=== PATIENT | female | born 1950 | race Caucasian/White ===

== ENCOUNTER 2018-07-04 18:56 | Inpatient (IN) | payer MEDICARE ==
[~2018-07-04] VITALS: Ht 157.4 cm; Wt 59.5 kg
--- NOTE | ~2018-07-04 | WRIGHTHP ---
[place], [place] PATIENT HISTORY AND PHYSICAL EXAM NAME: [facility]UL [facility]ER [id number] UNIT #: [id number] ROOM: 314 DOCTOR: BRENDA TOMLINSON MD BIRTHDATE: [birth year] DOS: 07/05/2018 INITIAL PSYCHIATRIC EVALUATION CHIEF COMPLAINT: "Oh, I have a long history of manic depression. I am feeling a little bit of everything." HISTORY OF PRESENT ILLNESS: This is a 68-year-old white female who was interviewed as she was completing her breakfast and looking out the window. She stopped and engaged readily in conversation. She reports that she is here from [facility] where she had presented with increased depression and mood lability. The patient reports that this has been ongoing now for several weeks and that she has felt totally out of control. She has not been sleeping well, not been eating well, not been attending to her ADLs. She reports several psychiatric admissions in her lifetime, but states that her current medication regimen is not been effective at controlling her mood lability. She is admitted now to re-stabilize on medication, to engage in individual and malave milieu activity, and to return to the least restrictive environment when psychiatrically stable. PAST MEDICAL HISTORY: Rather lengthy and includes chronic kidney disease stage 3, chronic pain, allergic rhinitis, fibromyalgia, generalized anxiety disorder, GERD, hyperlipidemia, hypertension, hypothyroidism, leukopenia, migraine headaches, multiple sclerosis, normocytic anemia, peripheral edema, seizure disorder, and vitamin B12 deficiency. SOCIAL HISTORY: She is a former smoker, a social alcohol user, but not an illicit drug user. ALLERGIES: LISTED TO PHENOTHIAZINES, DEPAKOTE, VIMPAT, LAMICTAL, ____. STRENGTHS: Good verbal skills, ambulatory. WEAKNESSES: Long-term psychiatric illness and poor coping skills. MENTAL STATUS: She is alert and oriented to person, place, and time. Mood does seem to be rather labile and she mixes some depressive symptoms with some hypomania. Although she did not endorse this to me, she has told nurses that she does have auditory hallucinations and at times hears and sees things that are not there. This is ongoing. Memory for the most part is intact. DIAGNOSIS: Bipolar type 1, mixed, with psychotic features. PLAN: I have already discontinued her Cymbalta and Serax and attempted to simplify her rather complicated medication regimen. I have started her on Latuda 40 mg at bedtime as a mood stabilizer, and I will now start her on Remeron 15 mg at bedtime to aid sleep and combat depression. We will engage her in individual and malave milieu activity, returning then to the least restrictive environment when psychiatrically stable. [place], [place] PATIENT HISTORY AND PHYSICAL EXAM NAME: JEAN-PAUL FISHER UNIT #: [id number] ROOM: [facility] DOCTOR: BRNEDA TOMLINSON MD BIRTHDATE: [birth year] BRENDA TOMLINSON MD CM:HISPHYS:PATIENT HISTORY AND PHYSICAL EXAMINATION 5 8 BRENDA TOMLINSON MD 07/05/18906 interface
--- NOTE | ~2018-07-04 | PR ---
[place], [place] PROGRESS NOTE NAME[id number] UNIT #: [id number] ROOM: 314 DOCTOR: BRENDA LOBATO MD BIRTHDATE: [birth year] DOS: 07/10/2018 CHIEF COMPLAINT: "I didn't sleep too well again Dr. Lobato." SUMMARY OF THE VISIT: The patient was interviewed as she was finishing her breakfast. She reported to me that she awoke this morning at 3:00 a.m. and lay in bed until 4 before she notified the staff member. She did report that she is not feeling at all somnolent, lightheaded or dizzy and feels that she can tolerate more of the medication stating that she has always been on sleeping pills throughout her life and has developed quite a tolerance. She did not appear somnolent or sedate and was not slurring her words and was very clear in her presentation to me. MENTAL STATUS: She is alert and oriented. Mood does still seem to be depressed. Affect is somewhat blunted and constricted with anxious overtones. There is no nessa, hypomania or psychotic symptoms. Memory for the most part is intact. PLAN: I will change her nighttime dose of trazodone to 300 mg at bedtime. While renewing the p.r.n. Ativan should she require intervention, engage in individual and malave milieu activity, return to the least restrictive environment when psychiatrically stable. BRENDA LOBATO MD CM:PNTRANS [id number] BRENDA LOBATO MD 07/10/18 0845 interface
--- NOTE | ~2018-07-04 | PR ---
[place], [place] PROGRESS NOTE NAME: [id number] UNIT #: [id number] ROOM: 314 DOCTOR: BRENDA TOMLINSON MD BIRTHDATE: [birth year] DOS: 07/08/2018 INTERVAL NOTE CHIEF COMPLAINT: "Oh doctor, my anxiety or my moods, I do not know, they are all bad." SUMMARY OF THE VISIT: The patient was interviewed in the dining area where she was very conversant. She reported to me that her anxiety is out of control. She at times links the anxiety with her nessa and her moods and states that overall she is still not feeling well. She is also overwhelmed with the fact that her is requiring surgery again that is cardiac in nature and it has been a repetitive surgery, but a serious one. She is very worried that about his health and how she will be able to deal with the stressors that are confronting her. She verbalizes an understanding of the medications and when I did tell her that I would adjust her medicines and add some Zanaflex throughout the day for her anxiety, she did relay that she was taking some of her Zanaflex during the day well at home. She convincingly denies medication side effects at the present time. MENTAL STATUS: She is alert and oriented to person, place and time. Mood does still seem to be depressed with anxious overtones. She endorses nessa, but I do not necessarily see her as hypomanic or manic at this time. There were no auditory or visual hallucinations, no delusions, no paranoia. Short term, intermediate and long-term memory for the most part are intact. PLAN: I will increase her Vistaril from 50 mg 3 times a day to 50 mg 4 times a day and add Zanaflex 4 mg 3 times a day while maintaining her nighttime dose. I will increase the Vraylar from 3 mg at bedtime to 4.5 mg at bedtime. We are targeting 6 mg at bedtime dose. Engage her in individual and malave milieu activity, returning then to the least restrictive environment when psychiatrically stable. BRENDA TOMLINSON MD CM:PNTRANS 4 0 BRENDA TOMLINSON MD 07/08/18 0940 interface
--- NOTE | ~2018-07-04 | PR ---
[place], [place] PROGRESS NOTE NAME: [id number] UNIT #: [id number] ROOM: 314 DOCTOR: BRENDA TOMLINSON MD BIRTHDATE: [birth year] DOS: 07/09/2018 CHIEF COMPLAINT: "Doctor I did not sleep at all last night." SUMMARY OF THE VISIT: The patient was interviewed in her room. She had just come from taking a shower after having breakfast. She reported to me that she did not sleep a wink last night, although nurses report that she slept soundly through the night. She, however, states that she could not shut the wheels off and that she was thinking about things nonstop. She is very worried about her 's health and his impending surgery and states this is one of the major issues that is bothering her at the present time. On a positive note the increase in the Vistaril and the addition of the Zanaflex throughout the day did impact positively on her anxiety. She did notice some mild somnolence, but states that this is a workable side effect and she is willing to see if it will pass. She notes no other side effects from the medications themselves. MENTAL STATUS: She is alert and oriented. Mood does seem to be still depressed with anxious overtones. There is no hypomania, nessa or psychosis. Memory for the most part is intact. PLAN: I will now maximize out the Vraylar to 6 mg at bedtime. I will discontinue Remeron and utilize trazodone as both an antidepressant and a sleep aid, ordering a 150 mg at bedtime straight and another 150 mg p.r.n., should she need it. Engage in individual and malave milieu activity, returning then to the least restrictive environment when psychiatrically stable. BRENDA TOMLINSON MD CM:PNTRANS [id number] BRENDA TOMLINSON MD 07/09/18 1029 interface
--- NOTE | ~2018-07-04 | PR ---
[place], [place] PROGRESS NOTE NAME: [facility]UL [facility]ER [facility] [id number] UNIT #: [id number] ROOM: 314 DOCTOR: BRENDA TOMLINSON MD BIRTHDATE: [birth year] DOS: 07/06/2018 CHIEF COMPLAINT: "Despite what they said doctor, I did not sleep well at all. I was up at 2, 4, 6 and 8." SUMMARY OF THE VISIT: The patient was interviewed in the dining area where she was sitting, drinking a cup of tea. She engaged readily in conversation and reports that Latuda has never worked for her in the past. She did request that I write her back her oxazepam, but I did redirect her stating that she came in on this and obviously it was working so well. She had to be hospitalized and that this would be the time to try something new to see if it would work better. She nodded her head in approval and was willing to consider trying something different. MENTAL STATUS: She remains alert and oriented. Mood is mixed between some hypomanic and depressive symptoms and she is somewhat irritable, but redirectable. There are no auditory or visual hallucinations, delusions or paranoia. Memory is intact. PLAN: I will discontinue Latuda due to previous history of ineffectiveness and start her on Vraylar 1.5 mg at bedtime as a new mood stabilizer. I will add Vistaril 50 mg t.i.d. straight as an antianxiety agent that is not addicting. I did reiterate to her that she does have p.r.n. Ativan available to which she was very happy for. I will let nursing know that they may use this, but cautiously as she does not abuse it. Engage in individual and malave milieu activity, returning to the least restrictive environment when psychiatrically stable. BRENDA TOMLINSON MD CM:PNTRANS 0 3 BRENDA TOMLINSON MD 07/06/18911 interface
[2018-07-04] MEDS ORDERED: ASPIRIN CHEWABL81 MG PO (21:35)
[2018-07-04] MEDS ORDERED: PANTOPRAZOLE SO40 MG PO (21:36)
[2018-07-04] MEDS ORDERED: ZANAFLEX CAPSULE4 MG PO (21:38)
[2018-07-04] MEDS ORDERED: TRIAMTERENE-HC1 EACH PO (21:41)
[2018-07-04] MEDS ORDERED: LEVOXYL112 MCG PO (21:42)
[2018-07-04] MEDS ORDERED: KEPPRA500 MG PO (21:43)
[2018-07-04] MEDS ORDERED: TOPAMAX200 MG PO (21:44)
[2018-07-04] MEDS ORDERED: LASIX40 MG PO (21:47)
[2018-07-04] MEDS ORDERED: PROPRANOLOL HCL20 M1 PO (21:50)
[2018-07-04] MEDS ORDERED: POTASSIUM CHLO20 ME3 PO (21:53)
[2018-07-04] MEDS ORDERED: RANITIDINE HCL150 M1 PO (21:56)
[2018-07-04] MEDS ORDERED: CETIRIZINE10 MG PO (21:58)
[2018-07-04] MEDS ORDERED: CLARITIN10 MG PO (21:59)
[2018-07-04] MEDS ORDERED: SIMVASTATIN5 MG PO (21:59)
[2018-07-04] MEDS ORDERED: VICODIN 5-3001 EACH PO ×2 (22:00→22:01)
[2018-07-04] MEDS ORDERED: B121000 MCG/1 IM (22:02)
[2018-07-04] MEDS ORDERED: CYMBALTA60 MG PO (22:03)
[2018-07-04] MEDS ORDERED: IMITREX4 MG/0.5 M SQ (22:07)
[2018-07-04] MEDS ORDERED: NITROGLYCERIN0.4 MG SL (22:10)
[2018-07-04] MEDS ORDERED: PHENERGAN12.5 M2 R (22:11)
[2018-07-04] MEDS ORDERED: OXAZEPAM15 MG PO (22:13)
[2018-07-04] MEDS ORDERED: PROAIR HFA8.5 GM INH (22:17)
[2018-07-04] MEDS ORDERED: SODIUM CHLORI1000 MG PO (22:29)
[2018-07-05 01:00] VITALS: BP 147/71
[2018-07-05 01:42] VITALS: BP 147/71
[2018-07-05 06:54] LABS: BASO % 0.7 % (0.0-1.0); HEMATOCRIT 26.2 % (37.0-47.0); HEMOGLOBIN 8.6 g/dl (12.0-16.0); LYMPH # 0.8 10*3/uL (1.3-4.4); LYMPH % 28.2 % (27.0-41.0); MEAN CELL VOLUME 99.6 fl (81.0-99.0); MEAN CORPUSCULAR HGB 32.7 pg (27.0-31.0); MEAN CORPUSCULAR HGB CONC 32.8 g/dl (33.0-37.0); MEAN PLATELET VOLUME 10.5 fl (9.6-12.3); MONO # 0.5 10*3/uL (0.1-1.0); MONO % 16.2 % (3.0-9.0); NEUT # 1.6 10*3/uL (2.3-7.9); NEUT % 54.9 % (47.0-73.0); PLATELET COUNT AUTOMATED 185 10*3/uL (130-400); RED BLOOD COUNT 2.63 10*6/uL (4.10-5.10); WHITE BLOOD COUNT 2.9 10*3/uL (4.8-10.8)
[2018-07-05 07:22] VITALS: BP 136/75
[2018-07-05 07:26] LABS: ALBUMIN 2.4 gm/dl (3.1-4.5); ALKALINE PHOSPHATASE 92 U/L (45-117); BUN 17 mg/dl (7-24); CHLORIDE 107 mmol/L (98-107); CHOLESTEROL 143 mg/dL (<200); CREATININE 1.09 mg/dL (0.55-1.02); HDL CHOLESTEROL 51 mg/dl (40-60); LDL CHOLESTEROL 80 mg/dL (9-159); POTASSIUM 3.8 mmol/L (3.5-5.1); SGOT/AST 20 IU/L (3-35); SGPT/ALT 18 U/L (12-78); SODIUM 137 mmol/L (136-145); TOTAL PROTEIN 7.2 gm/dL (6.4-8.2); TRIGLYCERIDES 61 mg/dl (<150); VLDL CHOLESTEROL 12 mg/dL (6-40)
[2018-07-05 07:33] LABS: THYROID STIM HORMONE (HS) 0.063 uIU/ml (0.358-4.75)
[2018-07-05 07:56] VITALS: BP 141/90
[2018-07-05 08:02] VITALS: BP 136/75
[2018-07-05 08:03] LABS: VITAMIN D, 25-HYDROXY 50.2 ng/mL (30-100)
[2018-07-05] MEDS ORDERED: PRIMIDONE50 MG PO (09:24)
[2018-07-05] MEDS ORDERED: RISPERIDONE M-TA1 MG PO (09:24)
[2018-07-05] MEDS ORDERED: HORIZANT300 M1 PO (09:25)
[2018-07-05 20:00] VITALS: BP 140/69
[2018-07-06 07:21] VITALS: BP 125/75
[2018-07-06 12:58] LABS: BILIRUBIN NEGATIVE (NEGATIVE); BLOOD NEGATIVE (NEGATIVE); CLARITY SL CLOUDY (CLEAR); COLOR YELLOW (YELLOW); GLUCOSE NEGATIVE (NEGATIVE); KETONE NEGATIVE (NEGATIVE); LEUKO ESTERASE NEGATIVE (NEGATIVE); NITRITE NEGATIVE (NEGATIVE); UROBILINOGEN 0.2 E.U./dl (0.2-1.0)
[2018-07-06 13:06] LABS: EPITHELIAL CELLS 0-2; WBC 0-2 wbc/hpf (0-5)
[2018-07-06 13:25] VITALS: BP 134/70
[2018-07-06 20:00] VITALS: BP 139/66
[2018-07-07 07:06] VITALS: BP 133/74
[2018-07-07 11:04] LABS: ALBUMIN 2.6 gm/dl (3.1-4.5); CREATININE 1.37 mg/dL (0.55-1.02); POTASSIUM 3.9 mmol/L (3.5-5.1); TOTAL PROTEIN 7.7 gm/dL (6.4-8.2)
[2018-07-07 19:44] VITALS: BP 134/65
[2018-07-08 07:07] VITALS: BP 123/52
[2018-07-08 20:00] VITALS: BP 110/88
[2018-07-09 07:13] VITALS: BP 126/61
[2018-07-09 20:04] VITALS: BP 146/65
[2018-07-10 08:36] VITALS: BP 120/56
[2018-07-10 12:05] LABS: LEVETIRACETAM (KEPPRA) 716936 15.6 ug/mL (10.0-40.0)
[2018-07-10 13:50] VITALS: BP 107/31; BP 107/61
[2018-07-10 20:21] VITALS: BP 117/56; BP 151/64
[2018-07-11 06:45] LABS: CREATININE 1.44 mg/dL (0.55-1.02); POTASSIUM 2.7 mmol/L (3.5-5.1)
[2018-07-11 07:46] VITALS: BP 107/52
[2018-07-11 20:30] VITALS: BP 112/60
[2018-07-12 07:32] VITALS: BP 104/55
[2018-07-12] MEDS ORDERED: SYNTHROID,LEV125 MCG PO (11:06)
[2018-07-12] MEDS ORDERED: K-TAB20 MEQ PO (11:06)
[2018-07-12] MEDS ORDERED: TIZANIDINE HCL4 MG PO ×2 (12:29)
[2018-07-12] MEDS ORDERED: TRAZODONE150 MG PO (12:29)
[2018-07-12] MEDS ORDERED: VRAYLAR6 MG PO (12:29)
[2018-07-12] MEDS ORDERED: HYDROXYZINE PAM25 M1 PO (12:29)
== END 2018-07-12 14:23 | disposition home or self-care (01) | DRG 885 ==
LOC: 3N 18:56
PROVIDERS: Internal Medicine; Psychiatry & Neurology Psychiatry
DX: F25.9 Schizoaffective disorder, unspecified (principal); E87.1 Hypo-osmolality and hyponatremia; F41.1 Generalized anxiety disorder; R30.0 Dysuria; G40.909 Epilepsy, unspecified, not intractable, without status epilepticus; E78.5 Hyperlipidemia, unspecified; I12.9 Hypertensive chronic kidney disease with stage 1 through stage 4 chronic kidney disease, or unspecified chronic kidney disease; E53.8 Deficiency of other specified B group vitamins; G43.909 Migraine, unspecified, not intractable, without status migrainosus; F31.60 Bipolar disorder, current episode mixed, unspecified; M54.9 Dorsalgia, unspecified; K21.9 Gastro-esophageal reflux disease without esophagitis; M79.7 Fibromyalgia; E87.6 Hypokalemia; N18.3 Chronic kidney disease, stage 3 (moderate); D64.9 Anemia, unspecified; D72.819 Decreased white blood cell count, unspecified; G35 Multiple sclerosis; G89.29 Other chronic pain; E03.9 Hypothyroidism, unspecified; Z91.09 Other allergy status, other than to drugs and biological substances; Z87.891 Personal history of nicotine dependence; Z88.8 Allergy status to other drugs, medicaments and biological substances; Z90.710 Acquired absence of both cervix and uterus; Z88.4 Allergy status to anesthetic agent; Z80.7 Family history of other malignant neoplasms of lymphoid, hematopoietic and related tissues; Z80.0 Family history of malignant neoplasm of digestive organs; Z79.82 Long term (current) use of aspirin; Z79.899 Other long term (current) drug therapy